=== PATIENT | female | born 1980 | race African-American/Black ===

== ENCOUNTER 2021-01-08 11:57 | Emergency (ER) | payer OTHER ==
[2021-01-08 12:10] VITALS: BP 112/75; PULSE 77; TEMP 98; BMI 31.1
[2021-01-08] MEDS ORDERED: IBUPROFEN 600 MG TABLET (FP) PO ONE ×2 (12:58→13:01)
== END 2021-01-08 14:54 | disposition home or self-care (01) ==
LOC: JER 11:57 → JERFT 11:57
DX: N61.1 Abscess of the breast and nipple (principal); N63.10 Unspecified lump in the right breast, unspecified quadrant; N64.4 Mastodynia
CPT/HCPCS: 76642-TC-RT; 99284-25